=== PATIENT | male | born 1940 | race Caucasian/White ===

== ENCOUNTER 2016-11-05 11:25 | Emergency (ER) | payer MEDICARE ==
--- NOTE | 2016-11-05 11:41 | ERPHSYRPT ---
- History of Present Illness Time Seen by Provider: 11/05/16 11:38 Source: patient Exam Limitations: no limitations Patient Subjective Stated Complaint: cough, pain to right rib and chest area when cough couple days, fever, nonproductive cough, headache Triage Nursing Assessment: pt alert,skin w/d,resp easy, walked in, no edema noted, Physician History: The patient is a 75-year-old male comes in complaining of a cough for 2 days. He also complains that when he coughs he gets pain in his right lower ribs. He has not had a influenza vaccine for many years. He is not short of breath. His past medical history is significant for hypertension, high cholesterol, dementia. Timing/Duration: day(s) (2) Cough Quality/Degree: moderate, dry cough Possible Cause: occasional episodes Modifying Factors: Improves With: coughing Associated Symptoms: cough Allergies/Adverse Reactions: No Known Drug Allergies Allergy (Verified 11/05/16 11:36) Home Medications: Amlodipine Besylate/Benazepril [Amlodipine-Benazepril 5-20 mg] 1 cap PO DAILY [History] Donepezil HCl 10 mg [Aricept 10 MG] 10 mg PO DAILY 02/28/14 [History] Ezetimibe 10 mg [Zetia 10 MG] 10 mg PO DAILY 02/28/14 [History] Memantine HCl [Namenda] 10 mg PO DAILY 02/28/14 [History] Modafinil [Provigil] 200 mg PO DAILY 02/28/14 [History] Pravastatin Sodium 40 mg PO DAILY 02/28/14 [History] Sertraline HCl [Zoloft] 25 mg PO DAILY 02/28/14 [History] Tizanidine HCl 4 mg [Zanaflex 4 MG] 4 mg PO DAILY 02/28/14 [History] Hx Tetanus, Diphtheria Vaccination/Date Given: No Hx Influenza Vaccination/Date Given: No Hx Pneumococcal Vaccination/Date Given: No - Review of Systems Constitutional: No Fever, No Chills Eyes: No Symptoms Ears, Nose, & Throat: No Symptoms Respiratory: Cough Cardiac: No Chest Pain, No Edema, No Syncope Abdominal/Gastrointestinal: No Abdominal Pain, No Nausea, No Vomiting, No Diarrhea Genitourinary Symptoms: No Dysuria Musculoskeletal: No Back Pain, No Neck Pain Skin: No Rash Neurological: No Dizziness, No Focal Weakness, No Sensory Changes Psychological: No Symptoms Endocrine: No Symptoms Hematologic/Lymphatic: No Symptoms Immunological/Allergic: No Symptoms All Other Systems: Reviewed and Negative - Past Medical History Pertinent Past Medical History: Yes Neurological History: Alzheimer's Disease, Dementia Cardiac History: High Cholesterol, Hypertension Respiratory History: Sleep Apnea Psycho-Social History: Anxiety, Depression Other Medical History: ALLERGIES - Past Surgical History Past Surgical History: No - Social History Smoking Status: Former smoker Exposure to second hand smoke: No Drug Use: none Patient Lives Alone: No - Nursing Vital Signs Nursing Vital Signs: Initial Vital Signs Temperature 98.9 F Temperature Source Oral Pulse Rate 71 Respiratory Rate 16 Blood Pressure [] 106/68 Pain Intensity 0 - Physical Exam General Appearance: no apparent distress, alert Eye Exam: PERRL/EOMI, eyes nml inspection Ears, Nose, Throat Exam: normal ENT inspection, TMs normal, pharynx normal, moist mucous membranes Neck Exam: normal inspection, non-tender, supple, full range of motion Respiratory Exam: normal breath sounds, lungs clear, No respiratory distress Cardiovascular Exam: regular rate/rhythm, normal heart sounds Gastrointestinal/Abdomen Exam: soft, No tenderness Rectal Exam: not done Back Exam: normal inspection, No CVA tenderness, No vertebral tenderness Extremity Exam: normal inspection, normal range of motion Neurologic Exam: alert, oriented x 3, cooperative, normal mood/affect, sensation nml, No motor deficits Skin Exam: normal color, warm, dry, No rash Lymphatic Exam: No adenopathy SpO2 Interpretation: normal SpO2: 94 Oxygen Delivery: Room Air - Radiology Exams Chest X-ray Interpretation: Teleradiologist Report, Negative (No acute per DR Marie) Ordered Tests: Active Orders 24 hr Category Date Time Status CHEST 2 VIEWS (PA AND LAT) Stat Exams 11/05/16 11:42 Completed Lab/Rad Data: Laboratory Results 11/05/16 Range/Units 11:51 Influenza Type A Ag POSITIVE (NEGATIVE) Influenza Type B Ag NEGATIVE (NEGATIVE) RSV (PCR) NEGATIVE (Negative) - Progress Progress: unchanged Air Movement: good Blood Culture(s) Obtained: No Antibiotics given: No Counseled pt/family regarding: lab results, diagnosis, need for follow-up, rad results - Departure Time of Disposition: 13:17 Departure Disposition: Home Clinical Impression: Influenza A Condition: Stable Critical Care Time: No Additional Instructions: You have influenza A infection. You will be ill with cough, fever, and muscle aches for a few days. Tylenol and ibuprofen as needed. Follow up in 2 days. Next year get your flu vaccine.
--- NOTE | 2016-11-05 12:19 | XRAY ---
Indication: Cough and chest pain. Comparison: December 03, 2011. PA/lateral chest again hyperinflated with chronic lung markings and a few tiny calcified granulomas. No focal infiltrate, consolidation, or large effusion. Heart is not enlarged. Vascularity normal. Bony thorax intact again with mild osteopenia and degenerative changes. Impression: Stable nonacute hyperinflated chest with chronic features.
[2016-11-05 13:38] VITALS: BP 132/71; PULSE 75; O2SAT 100
== END 2016-11-05 13:39 | disposition home or self-care (01) ==
LOC: ED 11:25
DX: J11.1 Influenza due to unidentified influenza virus with other respiratory manifestations (principal); R05 Cough; R50.9 Fever, unspecified; R51 Headache; I10 Essential (primary) hypertension; E78.00 Pure hypercholesterolemia, unspecified; F03.90 Unspecified dementia, unspecified severity, without behavioral disturbance, psychotic disturbance, mood disturbance, and anxiety; Z79.899 Other long term (current) drug therapy
CPT/HCPCS: 71020; 87631; 99282; 99284

== ENCOUNTER 2018-03-06 10:16 | Emergency (ER) | payer MEDICARE ==
--- NOTE | 2018-03-06 10:41 | ERPHSYRPT ---
- History of Present Illness Time Seen by Provider: 03/06/18 10:33 Historian: patient Exam Limitations: no limitations Patient Subjective Stated Complaint: pt here for pain to abd and left flank area that started this morning.no difficulty urniating, Triage Nursing Assessment: pt alert, resp easy, skin w/d/p, abd soft, no edema, pt anxious Physician History: 77-year-old white male with history of Alzheimer's and dementia arrives with complaint of left lower quadrant left flank pain symptoms since this morning. He has had no nausea no vomiting no diarrhea no urinary symptoms. Past medical history includes Alzheimer's dementia, hyperlipidemia, high blood pressure, sleep apnea, anxiety, depression, allergies. Past surgical history is negative. Social history patient denies tobacco alcohol or illicit drug use. Timing/Duration: today Activities at Onset: none Quality: cramping Abdominal Pain Onset Location: LLQ, flank (left flank) Pain Radiation: no radiation Severity of Pain-Max: moderate Severity of Pain-Current: moderate Modifying Factors: Improves With: nothing Associated Symptoms: No back, No chest pain, No diaphoresis, No diarrhea, No fever/chills, No fatigue, No headache, No heartburn, No loss of appetite, No nausea, No neck pain, No rash, No shortness of breath, No syncope, No testicular pain, No vomiting, No weakness Previous symptoms: no prior history Allergies/Adverse Reactions: No Known Drug Allergies Allergy (Verified 03/06/18 10:30) Home Medications: Amlodipine Besylate/Benazepril [Amlodipine-Benazepril 5-20 mg] 1 cap PO DAILY [History] Donepezil HCl 10 mg [Aricept 10 MG] 10 mg PO DAILY 02/28/14 [History] Modafinil [Provigil] 200 mg PO DAILY 02/28/14 [History] Pravastatin Sodium 40 mg PO DAILY 02/28/14 [History] Sertraline HCl [Zoloft] 25 mg PO DAILY 02/28/14 [History] Tizanidine HCl 4 mg [Zanaflex 4 MG] 4 mg PO DAILY 02/28/14 [History] Ezetimibe 10 mg DAILY 03/06/18 [History] Memantine HCl [Namenda Xr] 28 mg DAILY 03/06/18 [History] Hx Tetanus, Diphtheria Vaccination/Date Given: No Hx Influenza Vaccination/Date Given: Yes Hx Pneumococcal Vaccination/Date Given: Yes Immunizations Up to Date: Yes - Review of Systems Constitutional: No Fever, No Chills Eyes: No Symptoms Ears, Nose, & Throat: No Symptoms Respiratory: No Cough, No Dyspnea Cardiac: No Chest Pain, No Edema, No Syncope Abdominal/Gastrointestinal: Abdominal Pain, No Nausea, No Vomiting, No Diarrhea , No Constipation, No Hematemesis, No Hematochezia, No Melena, No Dysphagia, No Appetite Changes Genitourinary Symptoms: Flank Pain (left flank pain), No Dysuria, No Frequency, No Hematuria, No Hesitancy, No Incontinence, No Urgency, No Urinary Retention, No Testicle Pain, No Penile Discharge Musculoskeletal: No Back Pain, No Neck Pain Skin: No Rash Neurological: No Dizziness, No Focal Weakness, No Sensory Changes Psychological: No Symptoms Endocrine: No Symptoms All Other Systems: Reviewed and Negative - Past Medical History Pertinent Past Medical History: Yes Neurological History: Alzheimer's Disease, Dementia Cardiac History: High Cholesterol, Hypertension Respiratory History: Sleep Apnea Psycho-Social History: Anxiety, Depression Other Medical History: ALLERGIES - Past Surgical History Past Surgical History: No - Social History Smoking Status: Former smoker Exposure to second hand smoke: No Drug Use: none Patient Lives Alone: No - Nursing Vital Signs Nursing Vital Signs: Initial Vital Signs Temperature 97 F 03/06/18 10:24 Pulse Rate 58 L 03/06/18 10:24 Respiratory Rate 16 03/06/18 10:24 Blood Pressure 164/77 03/06/18 10:24 O2 Sat by Pulse Oximetry 96 03/06/18 10:24 Pain Scale Pain Intensity 2 - Physical Exam General Appearance: no apparent distress, alert Eye Exam: PERRL/EOMI, eyes nml inspection Ears, Nose, Throat Exam: normal ENT inspection, pharynx normal, moist mucous membranes Neck Exam: normal inspection, non-tender, supple, full range of motion Respiratory Exam: normal breath sounds, lungs clear, No respiratory distress Cardiovascular Exam: regular rate/rhythm Gastrointestinal/Abdomen Exam: soft, No tenderness, No mass Back Exam: normal inspection, normal range of motion, No CVA tenderness, No vertebral tenderness Extremity Exam: normal inspection, normal range of motion, pelvis stable Neurologic Exam: alert, oriented x 3, cooperative, groundskeeper supervisor II-XII nml as tested, normal mood/affect, nml cerebellar function, sensation nml, No motor deficits SpO2 Interpretation: normal (96%) SpO2: 96 Oxygen Delivery: Room Air - Course Nursing assessment & vital signs reviewed: Yes - CT Exams Abdomen/Pelvis CT Interpretation: Tele-radiologist Report (CT abdomen and pelvis: Impression: 4 mm proximal left ureter obstructing stone. Distal descending and sigmoid diverticulosis without diverticulitis there has been prior granulomatous disease , findings indicative of small bilateral cortical cysts, which can be further confirmed with ultrasound.) Ordered Tests: Active Orders 24 hr Category Date Time Status IV Insertion STAT Care 03/06/18 10:37 Active ABDOMEN AND PELVIS W/0 CONTRAS [CT] Stat Exams 03/06/18 11:29 Taken AMYLASE Stat Lab 03/06/18 10:45 Completed CBC W DIFF Stat Lab 03/06/18 10:45 Completed CMP Stat Lab 03/06/18 10:45 Completed CULTURE,URINE Stat Lab 03/06/18 13:45 Received LIPASE Stat Lab 03/06/18 10:45 Completed UA W/ MICROSCOPIC Stat Lab 03/06/18 13:45 Completed Medication Summary Generic Name Dose Route Start Last Admin Trade Name Freq PRN Reason Stop Dose Admin Sodium Chloride 1,000 mls @ 100 mls/hr 03/06/18 10:45 03/06/18 11:23 Sodium Chloride 0.9% 1000 Ml IV 04/05/18 10:44 100 mls/hr .Q10H SPENCER Administration Lab/Rad Data: Laboratory Result Diagrams 03/06/18 10:45 03/06/18 10:45 Laboratory Results 03/06/18 03/06/18 03/06/18 Range/Units 13:45 10:45 10:45 WBC 14.6 H (4.0-10.5) K/mm3 RBC 4.99 (4.1-5.6) M/mm3 Hgb 14.8 (12.5-18.0) gm/dl Hct 43.8 (42-50) % MCV 87.8 (78-100) fl MCH 29.7 (26-32) pg MCHC 33.8 (32-36) g/dl RDW 14.0 (11.5-14.0) % Plt Count 262 (150-450) K/mm3 MPV 10.4 H (6-9.5) fl Gran % 85.6 H (36.0-66.0) % Eos # (Auto) 0.02 (0-0.5) Absolute Lymphs (auto) 0.94 L (1.0-4.6) Absolute Monos (auto) 1.12 (0.0-1.3) Lymphocytes % 6.4 L (24.0-44.0) % Monocytes % 7.7 (0.0-12.0) % Eosinophils % 0.1 (0.00-5.0) % Basophils % 0.2 (0.0-0.4) % Absolute Granulocytes 12.49 H (1.4-6.9) Basophils # 0.03 (0-0.4) Sodium 140 (137-145) mmol/L Potassium 4.2 (3.5-5.1) mmol/L Chloride 103 (98-107) mmol/L Carbon Dioxide 27 (22-30) mmol/L Anion Gap 13.3 (5-15) MEQ/L BUN 15 (9-20) mg/dL Creatinine 1.06 (0.66-1.25) mg/dL Estimated GFR > 60.0 ML/MIN Glucose 142 H (74-106) mg/dL Calcium 9.5 (8.4-10.2) mg/dL Total Bilirubin 0.50 (0.2-1.3) mg/dL AST 17 (17-59) U/L ALT 22 (0-50) U/L Alkaline Phosphatase 77 (38-126) U/L Serum Total Protein 7.8 (6.3-8.2) g/dL Albumin 4.7 (3.5-5.0) g/dL Amylase 67 (30-110) U/L Lipase 60 (23-300) U/L Ur Collection Type CCMS Urine Color YELLOW (YELLOW) Urine Appearance CLEAR (CLEAR) Urine pH 6.0 (5-6) Ur Specific [place] 1.020 (1.005-1.025) Urine Protein TRACE (Negative) Urine Ketones NEGATIVE (NEGATIVE) Urine Blood 250 (0-5) Fernando/ul Urine Nitrite NEGATIVE (NEGATIVE) Urine Bilirubin NEGATIVE (NEGATIVE) Urine Urobilinogen NORMAL (0-1) mg/dL Ur Leukocyte Esterase NEGATIVE (NEGATIVE) Urine Microscopic RBC >100 (0-2) /HPF Urine Microscopic WBC 0-2 (0-5) /HPF Ur Epithelial Cells RARE (FEW) /HPF Calcium Oxalate Crystal 2-5 (NEGATIVE) /HPF Urine Culture Reflexed YES (NO) Urine Glucose NEGATIVE (NEGATIVE) mg/dL Specimen Received [id number] 03/06/18 - Progress Progress: improved Progress Note: 03/06/18 12:20 77-year-old white male with history of dementia and Alzheimer's arrives with complaint of left flank and left lower quadrant abdominal pain since this morning no vomiting he denies any urinary symptoms denies diarrhea. Patient with no tenderness on palpation of the abdomen. CT of the abdomen shows a 4 mm left proximal renal stone. Patient is refusing any pain medications, He apparently has refused to give the nurse urine, 03/06/18 14:46 Patient has greater 100 red cells per high-power field in his urine otherwise normal. Will plan to place patient on [place] for pain. Patient did drink plenty of fluids. He is to strain all his urine he is to follow-up with his family doctor or Dr Esqueda . - Departure Time of Disposition: 14:47 Departure Disposition: Home Clinical Impression: Left flank pain Urolithiasis Qualifiers: Urinary calculus location: lower urinary tract Qualified Code(s): N21.9 - Calculus of lower urinary tract, unspecified; N21 - Calculus of lower urinary tract Condition: Fair Critical Care Time: No Referrals: SHARRI HANNA [Primary Care Provider] - SERENITY ESQUEDA [COURTESY STAFF] - Additional Instructions: Return home. Plenty of fluids. [place] 5/325 one orally every 4-6 hours as needed for pain. Strain all urine. Follow-up with your family doctor or Dr. Esqueda tomorrow ( call their office ) Return for acute distress or for severe symptoms Prescriptions: Hydrocodone/Acetaminophen [[place] 5-325 Tablet] 1 tab PO Q4-6HPRN PRN #12 tablet MDD 6 tablets PRN Reason: Pain
[2018-03-06] MEDS ORDERED: Sodium Chloride 0.9% 1000 ML 1,000 ML IV SCH (10:45)
[2018-03-06 10:55] LABS: BASOPHIL % 0.2 % (0.0-0.4); Basophil (Absolute #) 0.03 (0-0.4); Eosinophil % 0.1 % (0.00-5.0); Eosinophil (Absolute #) 0.02 (0-0.5); Granulocyte Absolute (ANC) 12.49 (1.4-6.9); Granulocytes % 85.6 % (36.0-66.0); Hematocrit 43.8 % (42-50); Hemoglobin 14.8 gm/dl (12.5-18.0); Lymphocyte (Absolute #) 0.94 (1.0-4.6); Lymphocytes % 6.4 % (24.0-44.0); Mean Cell Volume 87.8 fl (78-100); Mean Corpuscular Hemoglobin 29.7 pg (26-32); Mean Corpuscular Hgb Concent. 33.8 g/dl (32-36); Mean Platelet Volume 10.4 fl (6-9.5); Monocyte (Absolute #) 1.12 (0.0-1.3); Monocytes % 7.7 % (0.0-12.0); Platelet Count 262 K/mm3 (150-450); Red Blood Count 4.99 M/mm3 (4.1-5.6); White Blood Count 14.6 K/mm3 (4.0-10.5)
[2018-03-06] MEDS ORDERED: Sodium Chloride 0.9% 1000 ML 1,000 ML ONE (10:56)
[2018-03-06 11:07] LABS: ALBUMIN 4.7 g/dL (3.5-5.0); ALKALINE PHOSPHATASE 77 U/L (38-126); AMYLASE 67 U/L (30-110); ANION GAP 13.3 MEQ/L (5-15); BLOOD UREA NITROGEN 15 mg/dL (9-20); CHLORIDE 103 mmol/L (98-107); Calcium 9.5 mg/dL (8.4-10.2); Carbon Dioxide 27 mmol/L (22-30); Creatinine 1 1.06 mg/dL (0.66-1.25); Glucose 142 mg/dL (74-106); LIPASE 60 U/L (23-300); Potassium 4.2 mmol/L (3.5-5.1); SGOT/AST 17 U/L (17-59); SGPT/ALT 22 U/L (0-50); SODIUM 140 mmol/L (137-145); Total Protein 7.8 g/dL (6.3-8.2)
[2018-03-06 14:09] LABS: Appearance CLEAR (CLEAR); Bilirubin NEGATIVE (NEGATIVE); Blood 250 Ery/ul (0-5); Glucose NEGATIVE (NEGATIVE); Ketones NEGATIVE (NEGATIVE); Leukocyte Esterase NEGATIVE (NEGATIVE); Nitrite NEGATIVE (NEGATIVE); Protein,Urine Dip TRACE (Negative); Urobilinogen NORMAL mg/dL (0-1)
[2018-03-06 14:35] LABS: Epithelial Cells RARE /HPF (FEW); RBC >100 /HPF (0-2); WBC 0-2 /HPF (0-5)
[2018-03-06 15:00] VITALS: BP 150/87; PULSE 60; O2SAT 98
--- NOTE | 2018-03-06 21:45 | XRAY ---
Indication: Left flank pain. Multiple contiguous axial images obtained through the abdomen and pelvis without contrast as ordered. Comparison: None Lung bases demonstrates mild bibasilar dependent atelectasis and scattered bibasilar fibrosis/scarring. No infiltrate or effusion. Heart is not enlarged. Small hiatal hernia. Noncontrasted stomach and bowel loops appear nonobstructed. Normal appendix. Sigmoid diverticulosis without diverticulitis. No free fluid/air. There is a 3-4 mm proximal left ureter calculus, approximately L3-L4 interspace level. Left kidney is mildly hydronephrotic with mild perinephric stranding consistent with obstructive uropathy. A few bilateral renal cysts, largest right lower pole measuring 15 mm. Scattered hepatic/splenic calcified granulomas. Remaining liver, gallbladder, pancreas, spleen, adrenal glands, kidneys, ureters, and bladder appear unremarkable for noncontrast exam. Mild aortoiliac calcifications including left main renal artery. Osseous structures intact with mild degenerative changes throughout the spine. No ventral or inguinal hernias. Impression: 1. 3-4 mm proximal left ureteral calculus producing partial obstruction. Bilateral renal cysts. 2. Sigmoid diverticulosis and evidence for old granulomatous disease. 3. Small hiatal hernia. Comment: Preliminary interpretation was made by [facility]. No critical discrepancy. CTDI 23.32
== END 2018-03-06 15:05 | disposition home or self-care (01) ==
LOC: ED 10:16
DX: N20.9 Urinary calculus, unspecified (principal); R10.32 Left lower quadrant pain; Z79.899 Other long term (current) drug therapy
CPT/HCPCS: 36415; 74176; 80053; 81000; 82150; 83690; 85025; 87086; 96360; 96361; 99284

== ENCOUNTER 2019-06-03 11:02 | Emergency (ER) | payer MEDICARE ==
--- NOTE | 2019-06-03 11:39 | ERPHSYRPT ---
- History of Present Illness Time Seen by Provider: 06/03/19 11:37 Source: patient, family Exam Limitations: no limitations Patient Subjective Stated Complaint: Pt was at [employer] yesterday and was walking to his car when he suddenly fell, pt is unsure what caused it and thinks he may have lost concsiousness but is unsure, hit his head above his right brow on his forehead and further up on the head, thinks that he landed on his right chest and is having intermittent pain on the right chest, rates pain 2/10, denies taking blood thinners, has brain cancer Triage Nursing Assessment: Pt's vitals wnl, rates pain 2/10 in chest and head, pulses normal, skin N/W/D, PERRL, small area swollen on top right of head Physician History: Pt was at [employer] yesterday and was walking to his car when he suddenly fell, pt is unsure what caused it and thinks he may have lost consciousness but is unsure , hit his head above his right brow on his forehead and further up on the head, thinks that he landed on his right chest and is having intermittent pain on the right chest, rates pain 2/10, denies taking blood thinners, has brain cancer Occurred: yesterday Reason for Fall: fainted Injuries/Pain Location: head, chest Loss of Consciousness: brief (seconds) Quality: throbbing Severity of Pain-Max: mild Severity of Pain-Current: mild Associated Symptoms (Fall): denies symptoms Allergies/Adverse Reactions: No Known Drug Allergies Allergy (Verified 06/03/19 11:32) Home Medications: Amlodipine Besylate/Benazepril [Amlodipine-Benazepril 5-20 mg] 1 cap PO DAILY [History] Donepezil HCl 10 mg [Aricept 10 MG] 10 mg PO DAILY 02/28/14 [History] Modafinil [Provigil] 200 mg PO DAILY 02/28/14 [History] Pravastatin Sodium 40 mg PO DAILY 02/28/14 [History] Sertraline HCl [Zoloft] 25 mg PO DAILY 02/28/14 [History] Tizanidine HCl 4 mg [Zanaflex 4 MG] 4 mg PO DAILY 02/28/14 [History] Ezetimibe 10 mg DAILY 03/06/18 [History] Memantine HCl [Namenda Xr] 28 mg DAILY 03/06/18 [History] Hx Tetanus, Diphtheria Vaccination/Date Given: No Hx Influenza Vaccination/Date Given: Yes Hx Pneumococcal Vaccination/Date Given: Yes - Review of Systems Constitutional: No Fever, No Chills Eyes: No Symptoms Ears, Nose, & Throat: No Symptoms Respiratory: No Cough, No Dyspnea Cardiac: Chest Pain, No Edema, No Syncope Abdominal/Gastrointestinal: No Abdominal Pain, No Nausea, No Vomiting, No Diarrhea Genitourinary Symptoms: No Dysuria Musculoskeletal: No Back Pain, No Neck Pain Skin: No Rash Neurological: No Dizziness, No Focal Weakness, No Sensory Changes Psychological: No Symptoms Endocrine: No Symptoms All Other Systems: Reviewed and Negative - Past Medical History Pertinent Past Medical History: Yes Neurological History: Alzheimer's Disease, Dementia Cardiac History: High Cholesterol, Hypertension Respiratory History: Sleep Apnea Psycho-Social History: Anxiety, Depression Other Medical History: ALLERGIES - Past Surgical History Past Surgical History: No Other Surgical History: brain surgery to remove tumor - Social History Smoking Status: Former smoker Exposure to second hand smoke: Yes Drug Use: none Patient Lives Alone: No - Nursing Vital Signs Nursing Vital Signs: Initial Vital Signs Temperature 97.8 F 06/03/19 11:15 Pulse Rate 61 06/03/19 11:15 Blood Pressure 136/75 06/03/19 11:15 O2 Sat by Pulse Oximetry 97 06/03/19 11:15 Pain Scale Pain Intensity 2 - Reyna Coma Score Best Eye Response (Benicia): (4) open spontaneously Best Verbal Response (Benicia): (5) oriented Best Motor Response (Reyna): (6) obeys commands Reyna Total: 15 - Physical Exam General Appearance: no apparent distress, alert Head Injury: no evidence of injury Eye Exam: PERRL/EOMI ENT Exam: airway nml Neck Exam: normal inspection, No tenderness Respiratory/Chest Exam: normal breath sounds, No chest tenderness, No respiratory distress Cardiovascular Exam: normal heart sounds, regular rate/rhythm Gastrointestinal Exam: soft, No tenderness, No distention, No guarding, No ecchymosis Back Exam: normal inspection, No vertebral tenderness Extremity Exam: normal inspection, normal range of motion, pelvis stable, No deformities Neurologic Exam: alert, oriented x 3, cooperative, sensation nml, No motor deficits Skin Exam: normal color, warm, dry SpO2: 97 - Radiology Exams Chest X-ray Interpretation: Reviewed by me - CT Exams Head CT Interpretation: Tele-radiologist Report Ordered Tests: Active Orders 24 hr Category Date Time Status CHEST 2 VIEWS (PA AND LAT) Stat Exams 06/03/19 11:29 Taken HEAD WITHOUT CONTRAST [CT] Stat Exams 06/03/19 11:28 Taken - Progress Progress: improved Counseled pt/family regarding: diagnosis, need for follow-up, rad results - Departure Departure Disposition: Home Clinical Impression: Glioblastoma Hematoma of frontal scalp Qualifiers: Encounter type: initial encounter Qualified Code(s): S00.03XA - Contusion of scalp, initial encounter Chest wall soft tissue injury Qualifiers: Encounter type: initial encounter Qualified Code(s): S29.9XXA - Unspecified injury of thorax, initial encounter Fall Qualifiers: Encounter type: initial encounter Qualified Code(s): W19.XXXA - Unspecified fall, initial encounter Condition: Stable Critical Care Time: No Referrals: SHARRI HANNA [Primary Care Provider] - Instructions: Preventing Falls, Contusion (DC) Additional Instructions: Discharge/Care Plan CELSO NIELSON was seen on 06/03/19 in the Emergency Room. The patient was counseled regarding Diagnosis,Lab results, Imaging studies, need for follow up and when to return to the Emergency Room. Prescriptions given: Discharge Note I have spoken with the patient and/or caregivers. I have explained the patient' s condition, diagnosis and treatment plan based on the information available to me at this time. I have answered the patient's and/or caregiver's questions and addressed any concerns. The patient and/or caregivers have as good understanding of the patient's diagnosis, condition and treatment plan as can be expected at this point. The vital signs have been stable. The patient's condition is stable and appropriate for discharge from the emergency department. The patient will pursue further outpatient evaluation with the primary care physician or other designated or consulting physician as outlined in the discharge instructions. The patient and/or caregivers are agreeable to this plan of care and follow-up instructions have been explained in detail. The patient and/or caregivers have received these instruction. The patient/and or caregivers are aware that any significant change in condition or worsening of symptoms should prompt an immediate return to this or the closest emergency department or call 911. CELSO NIELSON was seen on 06/03/19 n the Emergency Room. At that time you were treated for an emergent condition, during your visit Laboratory, Radiology and/or other procedures may have been ordered. It is very important that you follow-up with your Primary Care Physician SHARRI HANNA within the next 24-48 hours to review your Emergency Room visit and the final results of testing that was ordered. Some test results such as Urine Cultures, Blood Cultures, and other cultures if ordered will not be finalized for 24-48 hours. If you do not have a Primary Care Provider please call the medical records department at [phone] to obtain a copy of your results or you may sign into our patient portal to obtain these results by visiting us @ [email or web address] and completing the following steps: 1. Click on the Patient Portal link 2. Click the Patient Self Enrollment Link to complete the enrollment form and entering your 3. Once the enrollment form is completed you will receive an email with a temporary ID and password at the email address you provided. 4. Next choose a user name and password. Your user name must be at least 4 characters long and your password must be at least 4 characters long. 5. Choose a security question from the list and provide your answer to the question. If you already have signed into the Health Portal you may access your Health Care Information 22/03 by the following steps: 1. Login to our website @ [email or web address] 2. Enter your original user name and password. FAQS The [facility] Health Portal is an online tool that contains your Lab Results, Radiology Reports, Visit History, Discharge Instructions and Health Summary Lab and Radiology Results will not be available for 72 hours on the portal. The Portal is a secure site, passwords are encryted and URLs are re-written so they cannot be copied and pasted. You and authorized family members are the only ones who can access your Portal. Also there is a timeout feature that protects your information if you leave the Portal page open. If you have technical difficulty please use the Contact Us link on the page this will allow you to submit any questions you have regarding the Portal or you may contact the Medical Record Department at [phone] ext [phone].
[2019-06-03 12:35] VITALS: BP 138/81; PULSE 56; O2SAT 96
--- NOTE | 2019-06-03 20:41 | XRAY ---
Indication: Right frontal pain following fall. History of brain tumor with surgery. Multiple contiguous axial images obtained through the abdomen without contrast. Comparison: None Age appropriate global atrophy and minimal periventricular degenerative micro-ischemia bilaterally. Posterior left parietal lobe demonstrates moderate sized focus of cortical/subcortical hypoattenuation without mass effect/midline shift dating. Overlying craniotomy suggests findings probably postsurgical gliosis. Mass/malignancy not completely excluded on this noncontrast exam. Fourth ventricle is midline without hydrocephalus. Remaining bony calvarium intact. Visualized paranasal sinuses and mastoid air cells are clear. Impression: Left parietal lobe hypoattenuation as detailed with overlying craniotomy probably postsurgical. Mass/malignancy not completely excluded. Comparison studies would be of benefit. If not available, MRI brain with contrast may yield further information. Comment: Preliminary interpretation was made by [facility]. No critical discrepancy. CTDI 50.26
--- NOTE | 2019-06-03 20:43 | XRAY ---
Indication: Chest pain. Comparison: November 05, 2016. PA/lateral chest again demonstrates chronic lung markings and a few calcified granulomas. No focal infiltrate, consolidation, or large effusion. Heart is not enlarged. Bony thorax intact again with mild degenerative changes. Impression: Stable nonacute chest with chronic features.
== END 2019-06-03 12:38 | disposition home or self-care (01) ==
LOC: ED 11:02
DX: C71.9 Malignant neoplasm of brain, unspecified (principal); C79.9 Secondary malignant neoplasm of unspecified site; S00.03XA Contusion of scalp, initial encounter; S29.9XXA Unspecified injury of thorax, initial encounter; W19.XXXA Unspecified fall, initial encounter; Z79.899 Other long term (current) drug therapy; G30.9 Alzheimer's disease, unspecified; F02.80 Dementia in other diseases classified elsewhere, unspecified severity, without behavioral disturbance, psychotic disturbance, mood disturbance, and anxiety; E78.00 Pure hypercholesterolemia, unspecified; I10 Essential (primary) hypertension; G47.30 Sleep apnea, unspecified; F41.9 Anxiety disorder, unspecified; F32.89 Other specified depressive episodes
CPT/HCPCS: 70450; 71046; 99283

== ENCOUNTER 2020-01-24 22:15 | Emergency (ER) | payer MEDICARE ==
[2020-01-24] MEDS ORDERED: Zofran 4 MG/2 ML VIAL IV ONE (22:37)
[2020-01-24] MEDS ORDERED: TYLENOL EXTRA STRENGTH 500 MG PO STA (22:37)
[2020-01-24] MEDS ORDERED: TYLENOL EXTRA STRENGTH 500 MG ONE (22:42)
[2020-01-24] MEDS ORDERED: Sodium Chloride 0.9% 1000 ML 1,000 ML ONE (22:42)
[2020-01-24] MEDS ORDERED: Zofran 4 MG/2 ML VIAL ONE (22:42)
[2020-01-24] MEDS ORDERED: Sodium Chloride 0.9% 1000 ML 1,000 ML IV SCH (22:45)
[2020-01-24 23:06] LABS: Hematocrit 42.6 % (42-50); Hemoglobin 14.2 gm/dl (12.5-18.0); Mean Cell Volume 91.2 fl (78-100); Mean Corpuscular Hemoglobin 30.4 pg (26-32); Mean Corpuscular Hgb Concent. 33.3 g/dl (32-36); Platelet Count 281 K/mm3 (150-450); Red Blood Count 4.67 M/mm3 (4.1-5.6); Red Cell Distribution Width 13.7 % (11.5-14.0); White Blood Count 8.1 K/mm3 (4.0-10.5)
[2020-01-24 23:09] LABS: Appearance CLEAR (CLEAR); Bilirubin NEGATIVE (NEGATIVE); Blood SMALL Ery/ul (0-5); Glucose NEGATIVE (NEGATIVE); Ketones NEGATIVE (NEGATIVE); Leukocyte Esterase NEGATIVE (NEGATIVE); Mucus SLIGHT /HPF (NEGATIVE); Nitrite NEGATIVE (NEGATIVE); Protein,Urine Dip NEGATIVE (Negative); RBC 0-2 /HPF (0-2); Specific Gravity 1.019 (1.005-1.025); Urobilinogen NEGATIVE mg/dL (0-1); WBC 0-2 /HPF (0-5)
[2020-01-24 23:13] LABS: INR 1.08 (0.8-3.0); PROTIME 12.2 SECONDS (8.83-12.87)
[2020-01-24 23:16] LABS: PTT 31.3 SECONDS (24.1-36.1)
[2020-01-24 23:19] LABS: ALBUMIN 4.2 g/dL (3.5-5.0); ALKALINE PHOSPHATASE 66 U/L (38-126); ANION GAP 12.5 MEQ/L (5-15); BLOOD UREA NITROGEN 23 mg/dL (9-20); CHLORIDE 102 mmol/L (98-107); Calcium 9.3 mg/dL (8.4-10.2); Carbon Dioxide 28 mmol/L (22-30); Creatinine 1 1.21 mg/dL (0.66-1.25); Glucose 104 mg/dL (74-106); LDH-LACTATE DEHYDROGENASE 184 U/L (120-246); Potassium 4.3 mmol/L (3.5-5.1); SGOT/AST 20 U/L (17-59); SGPT/ALT 23 U/L (0-50); SODIUM 138 mmol/L (137-145); Total Protein 7.5 g/dL (6.3-8.2)
[2020-01-24 23:20] VITALS: O2SAT 97
[2020-01-24 23:38] LABS: INFLUENZA A NEGATIVE (NEGATIVE); INFLUENZA B NEGATIVE (NEGATIVE); RESPIRATORY SYNCTIAL VIRUS NEGATIVE (Negative)
[2020-01-24] MEDS ORDERED: DECADRON 10MG INJ. IV ONE (23:57)
[2020-01-24] MEDS ORDERED: DECADRON 10MG INJ. ONE (23:58)
[2020-01-25 00:08] VITALS: BP 122/86; PULSE 88
--- NOTE | 2020-01-25 00:16 | ERPHSYRPT ---
- History of Present Illness Time Seen by Provider: 01/24/20 22:48 Patient Subjective Stated Complaint: Pt reported "I just wasn't feeling well today." reported pt experiencing nausea with dizziness. Triage Nursing Assessment: Pt presented alert et pleasantly confused. Pt reported having a history of brain cancer as the reason why he is confused. Pt reported not feeling well throughout the day. pt was a poor historian regarding symptomology of presentation. Pt denied nasua/vomiting/diarrhea. Pt denied headache/dizziness. Pt denied chest pain/shortness of breath. Upon pt arrival, pt's reported dizziness and nausea. Pt noted to be unsteady on his feet. Pupils 3mm reactive. Oral mucosa pink/dry. Neck supple non-tender. Symmetrical chest expansion. Lungs clear with adequate airflow. Abdomen soft non-tender without noted palpable organomegaly. Bowel sounds normoactive in all quadrants. Radial pulses equal bilateral. No noted dependent edema. Physician History: 79 years old male with history of dementia, glioblastoma status post resection at [facility] by Dr. Jesu Perkins presented in the ER with chief complaint of altered mental status/dizziness. Patient is not a very good historian and most of the history is obtained from over the phone. Patient reports "I am not feeling well". Per patient woke up from a nap around 6 PM, was feeling dizzy, unsteady with tendency to fall, went to the bathroom and urinated all over. He did not know what he was doing. He was not feeling himself. He was complaining of dizziness and nausea but no vomiting. No fever or chills reported. No cough or shortness of breath but complaining of generalized weakness and fatigue. also reported him complaining of mild headache which is gone now. Timing/Duration: today, sudden, worse Severity: moderate Associated Symptoms: nausea, headaches Allergies/Adverse Reactions: No Known Drug Allergies Allergy (Verified 01/24/20 22:52) Home Medications: Amlodipine Besylate/Benazepril [Amlodipine-Benazepril 5-20 mg] 1 cap PO DAILY [History] Donepezil HCl 10 mg [Aricept 10 MG] 10 mg PO HS 02/28/14 [History] Modafinil [Provigil] 200 mg PO DAILY 02/28/14 [History] Pravastatin Sodium 40 mg PO HS 02/28/14 [History] Sertraline HCl [Zoloft] 100 mg PO DAILY 02/28/14 [History] Tizanidine HCl 4 mg [Zanaflex 4 MG] 4 mg PO BID 02/28/14 [History] Ezetimibe 10 mg DAILY 03/06/18 [History] Memantine HCl [Namenda Xr] 28 mg DAILY 03/06/18 [History] Bumetanide 1 mg PO DAILY 01/24/20 [History] Dexamethasone [Decadron] 4 mg PO DAILY 01/24/20 [History] Glyburide 5 mg PO DAILY 01/24/20 [History] Modafinil [Provigil] 200 mg PO DAILY 01/24/20 [History] Quetiapine Fumarate 25 mg PO BID PRN PRN 01/24/20 [History] Hx Tetanus, Diphtheria Vaccination/Date Given: No Hx Influenza Vaccination/Date Given: Yes Hx Pneumococcal Vaccination/Date Given: Yes Travel Risk - International Travel Have you traveled outside of the country in past 3 weeks: No Have you or anyone close to you been diagnosed with or: No Do your reside in a community with a known COVID-19 case?: Yes If Yes where:: [facility] - Coronavirus Screening Has patient experienced Coronavirus symptoms: No - Review of Systems Constitutional: Fatigue Eyes: No Symptoms Ears, Nose, & Throat: No Symptoms Respiratory: No Symptoms Cardiac: No Symptoms Abdominal/Gastrointestinal: Nausea Musculoskeletal: No Symptoms Skin: No Symptoms Neurological: Dizziness, Gait Changes, Headache Endocrine: No Symptoms Hematologic/Lymphatic: No Symptoms Immunological/Allergic: No Symptoms - Past Medical History Pertinent Past Medical History: Yes Neurological History: Alzheimer's Disease, Dementia Cardiac History: High Cholesterol, Hypertension Respiratory History: Sleep Apnea Psycho-Social History: Anxiety, Depression Other Medical History: ALLERGIES - Past Surgical History Past Surgical History: No Other Surgical History: brain surgery to remove tumor - Social History Smoking Status: Former smoker Exposure to second hand smoke: Yes Drug Use: none Patient Lives Alone: No - Nursing Vital Signs Nursing Vital Signs: Initial Vital Signs Temperature 100.0 F 01/24/20 22:24 Pulse Rate 100 H 01/24/20 22:24 Respiratory Rate 20 01/24/20 22:24 Blood Pressure 168/87 01/24/20 22:24 O2 Sat by Pulse Oximetry 91 L 01/24/20 22:24 Pain Scale Pain Intensity 0 - Physical Exam General Appearance: no apparent distress, alert Eye Exam: PERRL/EOMI, eyes nml inspection Ears, Nose, Throat Exam: normal ENT inspection, TMs normal, pharynx normal Neck Exam: normal inspection, supple, full range of motion Respiratory Exam: normal breath sounds, lungs clear, No chest tenderness Cardiovascular Exam: regular rate/rhythm, normal heart sounds Gastrointestinal/Abdomen Exam: soft, normal bowel sounds, No tenderness, No distention, No guarding Back Exam: normal inspection, No CVA tenderness Extremity Exam: normal inspection, normal range of motion, pelvis stable Neurologic Exam: alert, oriented x 3, cooperative, traveling missionary II-XII nml as tested, confusion, abnormal gait, No nml station & gait, No facial droop, No slurred speech Skin Exam: normal color SpO2 Interpretation: normal SpO2: 97 O2 Delivery: Room Air - Course Nursing assessment & vital signs reviewed: Yes EKG Interpreted by Me: RATE, NORMAL AXIS, NORMAL INTERVALS, Q-wave (Inferior leads) Ordered Tests: Active Orders 24 hr Category Date Time Status ACCUCHECK [Accucheck] STAT Care 01/24/20 22:55 Active French Drawer STAT Care 01/24/20 22:38 Active EKG-ER Only STAT Care 01/24/20 22:37 Active IV Insertion STAT Care 01/24/20 22:37 Active IV Insertion-2nd Peripheral STAT Care 01/24/20 22:45 Active Isolation, Initiate & Maintain STAT Care 01/24/20 22:37 Active Oxygen-ED Only Nasal Cannula 2 lpm Care 01/24/20 22:46 Active Pulse Oximetry (ED) ROUTINE Care 01/24/20 22:38 Active CHEST 1 VIEW (PORTABLE) Stat Exams 01/24/20 22:39 Taken HEAD WITHOUT CONTRAST [CT] Stat Exams 01/24/20 23:16 Taken BLOOD CULTURE Stat Lab 01/24/20 22:50 Received BLOOD CULTURE Stat Lab 01/24/20 22:55 Received CBC Stat Lab 01/24/20 22:55 Completed CMP Stat Lab 01/24/20 22:55 Completed LDH-LACTATE DEHYDROGENASE Stat Lab 01/24/20 22:55 Completed Lactic Acid Stat Lab 01/24/20 22:40 Completed PROTIME WITH INR Stat Lab 01/24/20 22:55 Completed PTT Stat Lab 01/24/20 22:55 Completed TROPONIN Q3H Lab 01/24/20 22:55 Completed TROPONIN Q3H Lab 01/25/20 01:45 Ordered TROPONIN Q3H Lab 01/25/20 04:45 Ordered TROPONIN Q3H Lab 01/25/20 07:45 Ordered TROPONIN Q3H Lab 01/25/20 10:45 Ordered UA W/RFX UR CULTURE Stat Lab 01/24/20 22:55 Completed Medication Summary Generic Name Dose Route Start Last Admin Trade Name Freq PRN Reason Stop Dose Admin Sodium Chloride 1,000 mls @ 100 mls/hr 01/24/20 22:45 01/24/20 23:49 Sodium Chloride 0.9% 1000 Ml IV 02/23/20 22:44 Infused .Q10H SPENCER Infusion Discontinued Medications Generic Name Dose Route Start Last Admin Trade Name Adelsoq PRN Reason Stop Dose Admin Acetaminophen 1,000 mg 01/24/20 22:37 01/24/20 22:44 Tylenol Extra Strength 500 Mg PO 01/24/20 22:38 1,000 mg STAT STA Administration Acetaminophen Confirm 01/24/20 22:42 Tylenol Extra Strength 500 Mg Administered 01/24/20 22:43 Dose 1,000 mg .ROUTE .STK-MED ONE Dexamethasone Sodium Phosphate 10 mg 01/24/20 23:57 01/24/20 23:59 Decadron 10mg Inj. IV 01/24/20 23:58 10 mg STAT ONE Administration Dexamethasone Sodium Phosphate Confirm 01/24/20 23:58 Decadron 10mg Inj. Administered 01/24/20 23:59 Dose 10 mg .ROUTE .STK-MED ONE Ondansetron HCl 4 mg 01/24/20 22:37 01/24/20 22:45 Zofran 4 Mg/2 Ml Vial IV 01/24/20 22:38 4 mg STAT ONE Administration Ondansetron HCl Confirm 01/24/20 22:42 Zofran 4 Mg/2 Ml Vial Administered 01/24/20 22:43 Dose 4 mg .ROUTE .STK-MED ONE Lab/Rad Data: Laboratory Result Diagrams 01/24/20 22:55 01/24/20 22:55 Laboratory Results 01/24/20 01/24/20 01/24/20 Range/Units 22:55 22:55 22:55 WBC (4.0-10.5) K/mm3 RBC (4.1-5.6) M/mm3 Hgb (12.5-18.0) gm/dl Hct (42-50) % MCV (78-100) fl MCH (26-32) pg MCHC (32-36) g/dl RDW (11.5-14.0) % Plt Count (150-450) K/mm3 MPV (7.5-11.0) fl PT (8.83-12.87) SECONDS INR (0.8-3.0) APTT (24.1-36.1) SECONDS Sodium (137-145) mmol/L Potassium (3.5-5.1) mmol/L Chloride (98-107) mmol/L Carbon Dioxide (22-30) mmol/L Anion Gap (5-15) MEQ/L BUN (9-20) mg/dL Creatinine (0.66-1.25) mg/dL Estimated GFR ML/MIN Glucose (74-106) mg/dL Lactic Acid (0.4-2.0) Calcium (8.4-10.2) mg/dL Total Bilirubin (0.2-1.3) mg/dL AST (17-59) U/L ALT (0-50) U/L Alkaline Phosphatase (38-126) U/L Lactate Dehydrogenase (120-246) U/L Troponin I < 0.012 (0.000-0.034) ng/mL Serum Total Protein (6.3-8.2) g/dL Albumin (3.5-5.0) g/dL Urine Color YELLOW (YELLOW) Urine Appearance CLEAR (CLEAR) Urine pH 6.0 (5-6) Ur Specific [place] 1.019 (1.005-1.025) Urine Protein NEGATIVE (Negative) Urine Ketones NEGATIVE (NEGATIVE) Urine Blood SMALL (0-5) Fernando/ul Urine Nitrite NEGATIVE (NEGATIVE) Urine Bilirubin NEGATIVE (NEGATIVE) Urine Urobilinogen NEGATIVE (0-1) mg/dL Ur Leukocyte Esterase NEGATIVE (NEGATIVE) Urine WBC (Auto) 0-2 (0-5) /HPF Urine RBC (Auto) 0-2 (0-2) /HPF U Epithel Cells (Auto) NONE (FEW) /HPF Urine Bacteria (Auto) NONE (NEGATIVE) /HPF Urine Mucus (Auto) SLIGHT (NEGATIVE) /HPF Urine Culture Reflexed NO (NO) Urine Glucose NEGATIVE (NEGATIVE) mg/dL Influenza Type A Ag NEGATIVE (NEGATIVE) Influenza Type B Ag NEGATIVE (NEGATIVE) RSV (PCR) NEGATIVE (Negative) 01/24/20 01/24/20 01/24/20 Range/Units 22:55 22:55 22:55 WBC 8.1 (4.0-10.5) K/mm3 RBC 4.67 (4.1-5.6) M/mm3 Hgb 14.2 (12.5-18.0) gm/dl Hct 42.6 (42-50) % MCV 91.2 (78-100) fl MCH 30.4 (26-32) pg MCHC 33.3 (32-36) g/dl RDW 13.7 (11.5-14.0) % Plt Count 281 (150-450) K/mm3 MPV 10.0 (7.5-11.0) fl PT 12.2 (8.83-12.87) SECONDS INR 1.08 (0.8-3.0) APTT 31.3 (24.1-36.1) SECONDS Sodium 138 (137-145) mmol/L Potassium 4.3 (3.5-5.1) mmol/L Chloride 102 (98-107) mmol/L Carbon Dioxide 28 (22-30) mmol/L Anion Gap 12.5 (5-15) MEQ/L BUN 23 H (9-20) mg/dL Creatinine 1.21 (0.66-1.25) mg/dL Estimated GFR > 60.0 ML/MIN Glucose 104 (74-106) mg/dL Lactic Acid (0.4-2.0) Calcium 9.3 (8.4-10.2) mg/dL Total Bilirubin 0.60 (0.2-1.3) mg/dL AST 20 (17-59) U/L ALT 23 (0-50) U/L Alkaline Phosphatase 66 (38-126) U/L Lactate Dehydrogenase 184 (120-246) U/L Troponin I (0.000-0.034) ng/mL Serum Total Protein 7.5 (6.3-8.2) g/dL Albumin 4.2 (3.5-5.0) g/dL Urine Color (YELLOW) Urine Appearance (CLEAR) Urine pH (5-6) Ur Specific [place] (1.005-1.025) Urine Protein (Negative) Urine Ketones (NEGATIVE) Urine Blood (0-5) Fernando/ul Urine Nitrite (NEGATIVE) Urine Bilirubin (NEGATIVE) Urine Urobilinogen (0-1) mg/dL Ur Leukocyte Esterase (NEGATIVE) Urine WBC (Auto) (0-5) /HPF Urine RBC (Auto) (0-2) /HPF U Epithel Cells (Auto) (FEW) /HPF Urine Bacteria (Auto) (NEGATIVE) /HPF Urine Mucus (Auto) (NEGATIVE) /HPF Urine Culture Reflexed (NO) Urine Glucose (NEGATIVE) mg/dL Influenza Type A Ag (NEGATIVE) Influenza Type B Ag (NEGATIVE) RSV (PCR) (Negative) 01/24/20 Range/Units 22:40 WBC (4.0-10.5) K/mm3 RBC (4.1-5.6) M/mm3 Hgb (12.5-18.0) gm/dl Hct (42-50) % MCV (78-100) fl MCH (26-32) pg MCHC (32-36) g/dl RDW (11.5-14.0) % Plt Count (150-450) K/mm3 MPV (7.5-11.0) fl PT (8.83-12.87) SECONDS INR (0.8-3.0) APTT (24.1-36.1) SECONDS Sodium (137-145) mmol/L Potassium (3.5-5.1) mmol/L Chloride (98-107) mmol/L Carbon Dioxide (22-30) mmol/L Anion Gap (5-15) MEQ/L BUN (9-20) mg/dL Creatinine (0.66-1.25) mg/dL Estimated GFR ML/MIN Glucose (74-106) mg/dL Lactic Acid 1.4 (0.4-2.0) Calcium (8.4-10.2) mg/dL Total Bilirubin (0.2-1.3) mg/dL AST (17-59) U/L ALT (0-50) U/L Alkaline Phosphatase (38-126) U/L Lactate Dehydrogenase (120-246) U/L Troponin I (0.000-0.034) ng/mL Serum Total Protein (6.3-8.2) g/dL Albumin (3.5-5.0) g/dL Urine Color (YELLOW) Urine Appearance (CLEAR) Urine pH (5-6) Ur Specific [place] (1.005-1.025) Urine Protein (Negative) Urine Ketones (NEGATIVE) Urine Blood (0-5) Fernando/ul Urine Nitrite (NEGATIVE) Urine Bilirubin (NEGATIVE) Urine Urobilinogen (0-1) mg/dL Ur Leukocyte Esterase (NEGATIVE) Urine WBC (Auto) (0-5) /HPF Urine RBC (Auto) (0-2) /HPF U Epithel Cells (Auto) (FEW) /HPF Urine Bacteria (Auto) (NEGATIVE) /HPF Urine Mucus (Auto) (NEGATIVE) /HPF Urine Culture Reflexed (NO) Urine Glucose (NEGATIVE) mg/dL Influenza Type A Ag (NEGATIVE) Influenza Type B Ag (NEGATIVE) RSV (PCR) (Negative) - Progress Progress: unchanged, re-examined Progress Note: 01/25/20 00:16 79 years old is evaluated for altered mental status/confusion with some dizziness and unsteady gait. Patient has no focal weakness. He also has a low- grade fever of 100 on presentation in the ER. Broad work-up was done with normal white count, grossly unremarkable chemistries. Chest x-ray did not show any focal pneumonic infiltrates. I have obtained CT without contrast which showed extensive vasogenic edema involving the old left cerebrum with no midline shift. Given 10 mg IV Decadron. Findings discussed with patient and with need for transfer to a higher level of care and they agreed. Discussed with Dr. Flores and Dr. Perkins, reviewed patient presentation, labs and CT findings, agreed with transfer for further evaluation and management. Discussed with Dr.: Other (Dr. Flores [facility] and Dr. Perkins [facility]) Counseled pt/family regarding: lab results, diagnosis, rad results - Departure Departure Disposition: Transfer Clinical Impression: Vasogenic cerebral edema Mental status alteration Qualifiers: Altered mental status type: unspecified Qualified Code(s): R41.82 - Altered mental status, unspecified Condition: Fair Critical Care Time: Yes Critical Care Time(excluding separately billable procedures): Critical 30-74 mins Referrals: SHARRI HANNA [Primary Care Provider] -
--- NOTE | 2020-01-25 09:00 | XRAY ---
Indication: Pneumonia. Comparison: June 03, 2019. Portable chest again demonstrates minimal right mid lung fibrosis/scarring and a few scattered tiny calcified granulomas. No focal infiltrate, consolidation, or large effusion. Heart is not enlarged. Bony thorax intact again with mild degenerative changes. Impression: Continued nonacute chest with chronic features.
--- NOTE | 2020-01-25 09:06 | XRAY ---
Indication: Confusion and dizziness. History brain tumor. Possible stroke. Multiple contiguous axial images obtained through the head without contrast. Comparison: June 03, 2019. Again age-appropriate global atrophy and minimal periventricular degenerative micro-ischemia bilaterally. Posterior left parietal lobe demonstrates grossly stable large focus of cortical/subcortical hypoattenuation again without mass effect/midline shifting presumed post-therapeutic changes. No acute intracranial hemorrhage, abnormal extra-axial fluid collection, or hydrocephalus. Fourth ventricle is midline. Bony calvarium intact again with left posterior parietal/occipital craniotomy. Visualized paranasal sinuses and mastoid air cells are clear. Impression: Stable atrophy, degenerative micro-ischemia, and left posterior parietal lobe post therapeutic changes. No new or acute intracranial abnormalities. MRI brain with contrast may yield further information if there remains clinical concern. Comment: Preliminary interpretation was made by [facility]. No critical discrepancy.
== END 2020-01-25 00:50 | disposition short-term general hospital (02) ==
LOC: ED 22:15
DX: G93.6 Cerebral edema (principal); R41.82 Altered mental status, unspecified; R42 Dizziness and giddiness; Z85.841 Personal history of malignant neoplasm of brain; Z79.899 Other long term (current) drug therapy; R53.83 Other fatigue; G30.1 Alzheimer's disease with late onset; F02.80 Dementia in other diseases classified elsewhere, unspecified severity, without behavioral disturbance, psychotic disturbance, mood disturbance, and anxiety; I10 Essential (primary) hypertension; E78.00 Pure hypercholesterolemia, unspecified; G47.30 Sleep apnea, unspecified; R53.1 Weakness; R50.9 Fever, unspecified
CPT/HCPCS: 36000; 36415; 70450; 71045; 80053; 81001; 82962; 83605; 83615; 84484; 85027; 85610; 85730; 87040; 87631; 93005; 93041; 94760; 96360; 96374; 96375; 99285; 99291; J1100; J2405; A9270-GY